=== PATIENT | female | born 1980 | race Hispanic/Latino ===

== ENCOUNTER 2020-11-11 14:04 | Emergency (ER) | payer BC ==
[~2020-11-11] VITALS: Ht 167.6 cm; Wt 52.2 kg
[2020-11-11] MEDS ORDERED: BAMLANIVIMAB 700 MG/20 ML VIAL IV ONE (14:30)
[2020-11-11] MEDS ORDERED: BAMLANIVIMAB IV ONE (14:43)
[2020-11-11] MEDS ORDERED: BAMLANIVIMAB 700 MG in SODIUM CHLORIDE 0.9% 250ML 250 ML IV ONE (15:00)
== END 2020-11-11 16:30 | disposition home or self-care (01) ==
LOC: ER 15:17
DX: Z20.822 Contact with and (suspected) exposure to COVID-19 (principal); R05 Cough; R53.83 Other fatigue; M79.10 Myalgia, unspecified site
CPT/HCPCS: 99282; J7050